=== PATIENT | female | born 1980 | race Two or more races ===

== ENCOUNTER → 2020-06-05 | Outpatient (CLI) | payer OTHER | END | disposition home or self-care (01) | LOC: PRENATAL 08:30 | PROVIDERS: ATTEND Obstetrics & Gynecology Maternal & Fetal Medicine | DX: Z36.89 Encounter for other specified antenatal screening (principal); O36.80X1 Pregnancy with inconclusive fetal viability, fetus 1; Z3A.08 8 weeks gestation of pregnancy ==

== ENCOUNTER → 2020-09-03 | Outpatient (CLI) | payer OTHER | END | disposition home or self-care (01) | LOC: PRENATAL 12:55 | PROVIDERS: ATTEND Obstetrics & Gynecology Maternal & Fetal Medicine | DX: O35.0XX1 Maternal care for (suspected) central nervous system malformation in fetus, fetus 1 (principal); O35.3XX1 Maternal care for (suspected) damage to fetus from viral disease in mother, fetus 1; O98.512 Other viral diseases complicating pregnancy, second trimester; Z36.89 Encounter for other specified antenatal screening; Z3A.19 19 weeks gestation of pregnancy ==

== ENCOUNTER 2020-12-17 14:00 | Inpatient (IN) | payer OTHER ==
[~2020-12-17] VITALS: Ht 170.2 cm; Wt 80.7 kg
[2021-01-11] MEDS ORDERED: PRENATAL TABLE1 EAC3 (19:57)
[2021-01-11] MEDS ORDERED: LEVOTHYROXINE SO1 GM MC (19:59)
== END 2021-01-15 14:35 | disposition home or self-care (01) | DRG 807 ==
LOC: SURG-SUITE 01-13 11:16 → LDR 01-13 11:16 → SURG-SUITE 01-13 14:24 → OB/GYN 01-17 14:00
PROVIDERS: ADMIT Specialist; ATTEND Specialist
PROC: 10E0XZZ Delivery of Products of Conception, External Approach (ICD-10-PCS; principal; 2021-01-13)
PROC: 0HQ9XZZ Repair Perineum Skin, External Approach (ICD-10-PCS; 2021-01-13)
PROC: 4A1HXFZ Monitoring of Products of Conception, Cardiac Rhythm, External Approach (ICD-10-PCS; 2021-01-13)
DX: O70.0 First degree perineal laceration during delivery (principal); Z37.0 Single live birth; O99.824 Streptococcus B carrier state complicating childbirth; Z3A.39 39 weeks gestation of pregnancy; Z20.822 Contact with and (suspected) exposure to COVID-19

== ENCOUNTER 2021-01-11 19:35 | Outpatient (CLI) | payer OTHER ==
[2021-01-11] MEDS ORDERED: PRENATAL TABLE1 EAC3 (19:57)
[2021-01-11] MEDS ORDERED: LEVOTHYROXINE SO1 GM MC (19:59)
== END 2021-01-11 22:40 | disposition home or self-care (01) ==
LOC: OBS/DEL 19:35
PROVIDERS: ATTEND Specialist
DX: O23.593 Infection of other part of genital tract in pregnancy, third trimester (principal); O99.283 Endocrine, nutritional and metabolic diseases complicating pregnancy, third trimester; E03.8 Other specified hypothyroidism; Z3A.38 38 weeks gestation of pregnancy